=== PATIENT | female | born 1950 | race Two or more races ===

== ENCOUNTER 2017-12-02 07:30 | Outpatient (CLI) | payer OTHER ==
[~2017-12-02 07:30] MED LIST: ANAPROX275 MG PO; AVALIDE 300-12.1 TAB PO; CATAFLAN PO; LIPITOR20 MG PO; METHOCARBAMOL500 MG PO; NAPR500T14 PO; NEURONTIN300 MG PO; NORFLEX100MG PO; PROTONIX20 MG PO; SINGULAIR10 MG PO; TRAMADOL HCL50 MG PO
== END 2017-12-02 07:45 | disposition home or self-care (01) ==
LOC: MRI 07:30
DX: M43.17 Spondylolisthesis, lumbosacral region (principal)
CPT/HCPCS: 72148

== ENCOUNTER 2018-06-18 09:43 | Outpatient (CLI) | payer OTHER | END 2018-06-18 17:00 | disposition home or self-care (01) | LOC: MAMO-SONO 09:43 | DX: N64.4 Mastodynia (principal); N60.11 Diffuse cystic mastopathy of right breast; N60.12 Diffuse cystic mastopathy of left breast; Z12.31 Encounter for screening mammogram for malignant neoplasm of breast ==

== ENCOUNTER 2018-06-18 11:40 | Outpatient (CLI) | payer OTHER | END 2018-06-18 13:06 | disposition home or self-care (01) | LOC: NUCLEAR 11:40 | DX: M85.89 Other specified disorders of bone density and structure, multiple sites (principal); M81.0 Age-related osteoporosis without current pathological fracture ==

== ENCOUNTER 2019-05-21 07:26 | Outpatient (CLI) | payer OTHER | END 2019-05-21 07:31 | disposition home or self-care (01) | LOC: MRI 07:26 | DX: I10 Essential (primary) hypertension (principal); E66.8 Other obesity; R51 Headache | CPT/HCPCS: 70551 ==

== ENCOUNTER 2019-06-03 10:07 | Outpatient (CLI) | payer OTHER | END 2019-06-03 10:10 | disposition home or self-care (01) | LOC: SONOGRAMA 10:07 | DX: J20.8 Acute bronchitis due to other specified organisms (principal); I10 Essential (primary) hypertension; N28.81 Hypertrophy of kidney; R05 Cough ==

== ENCOUNTER 2021-06-20 08:43 | Outpatient (CLI) | payer OTHER | END 2021-06-20 08:57 | disposition home or self-care (01) | LOC: MAMO-SONO 08:43 | PROVIDERS: ATTEND General Practice | DX: N60.29 Fibroadenosis of unspecified breast (principal); Z12.31 Encounter for screening mammogram for malignant neoplasm of breast ==

== ENCOUNTER 2023-06-18 09:32 | Outpatient (CLI) | payer OTHER | END 2023-06-18 09:34 | disposition home or self-care (01) | LOC: MAMO-SONO 09:32 | PROVIDERS: ATTEND General Practice | DX: Z12.31 Encounter for screening mammogram for malignant neoplasm of breast (principal); N60.19 Diffuse cystic mastopathy of unspecified breast ==

== ENCOUNTER 2023-06-24 09:17 | Outpatient (CLI) | payer OTHER | END 2023-06-24 09:22 | disposition home or self-care (01) | LOC: MRI 09:17 | PROVIDERS: ATTEND General Practice | DX: G46.0 Middle cerebral artery syndrome (principal) | CPT/HCPCS: 70553; Q9965; 70552 ==

== ENCOUNTER 2024-03-09 08:10 | Outpatient (CLI) | payer OTHER | END 2024-03-09 08:16 | disposition home or self-care (01) | LOC: RAD 08:10 | PROVIDERS: ATTEND Internal Medicine Pulmonary Disease | DX: J44.1 Chronic obstructive pulmonary disease with (acute) exacerbation (principal); J45.41 Moderate persistent asthma with (acute) exacerbation ==

== ENCOUNTER 2024-04-16 08:55 | Outpatient (CLI) | payer OTHER | END 2024-04-16 09:07 | disposition home or self-care (01) | LOC: RAD 08:55 | PROVIDERS: ATTEND Internal Medicine Rheumatology | DX: M15.0 Primary generalized (osteo)arthritis (principal) ==

== ENCOUNTER 2024-04-21 12:47 | Outpatient (CLI) | payer OTHER | END 2024-04-21 12:48 | disposition home or self-care (01) | LOC: NUCLEAR 12:47 | PROVIDERS: ATTEND Internal Medicine Rheumatology | DX: M81.0 Age-related osteoporosis without current pathological fracture (principal) ==

== ENCOUNTER 2024-08-31 09:02 | Outpatient (CLI) | payer OTHER | END 2024-08-31 09:07 | disposition home or self-care (01) | LOC: RAD 09:02 | PROVIDERS: ATTEND General Practice | DX: I20.9 Angina pectoris, unspecified (principal) ==

== ENCOUNTER 2025-08-02 07:06 | Outpatient (CLI) | payer OTHER | END 2025-08-02 07:07 | disposition home or self-care (01) | LOC: NUCLEAR 07:06 | PROVIDERS: ATTEND Internal Medicine | DX: I11.9 Hypertensive heart disease without heart failure (principal) | CPT/HCPCS: 78452; 93017; A9500 ==